=== PATIENT | male | born 1940 | race Caucasian/White ===

== ENCOUNTER → 2022-02-12 14:01 | Outpatient (CLI) | payer MEDICARE, SELFPAY ==
--- NOTE | ~2022-02-12 | US_ITS ---
US renal BI 02/12/2022 14:25 Procedure: Realtime transabdominal ultrasound of the kidneys and bladder. Indication: Urinary retention. Comparison: No prior studies for comparison. Findings: Renal echotexture is normal bilaterally without hydronephrosis, contour deforming mass or r enal calculus. The right kidney measures 11.5 cm and left kidney measures 12.2 cm. Bladder not well d istended due to catheterization. Impression: 1: Unremarkable renal ultrasound. No stones, masses or hydronephrosis. Reviewed, dictated and finalized at location A. Impression: 1: Unremarkable renal ultrasound. No stones, masses or hydronephrosis.
== END ==
PROVIDERS: PCP Family Medicine; Visit Provider Nurse Practitioner Family
DX: R33.9 Retention of urine, unspecified (principal)
CPT/HCPCS: 76775